=== PATIENT | male | born 1990 | race Caucasian/White ===

== ENCOUNTER 2017-12-19 08:19 | Emergency (ER) | payer OTHER ==
[~2017-12-19] VITALS: Ht 180.3 cm; Wt 84.8 kg
[~2017-12-19 08:19] MED LIST: NOHOMEMEDICATIONS; NORCO 5-325 TA1 EACH PO; TAMSULOSIN HCL0.4 M1 PO; ZOFRAN4 MG PO
[2017-12-19 08:24] VITALS: BP 145/83
[2017-12-19] MEDS ORDERED: TOBREX5 ML OPHTHALMIC (08:45)
[2017-12-19] MEDS ORDERED: NORCO 5-325 TA1 EACH PO (08:45)
== END 2017-12-19 08:49 | disposition home or self-care (01) ==
LOC: ER 08:19
DX: H10.211 Acute toxic conjunctivitis, right eye (principal); Z90.89 Acquired absence of other organs